=== PATIENT | male | born 1940 | race Caucasian/White ===

== ENCOUNTER → 2017-10-31 12:55 | Outpatient (CLI) | payer MEDICARE ==
[~2017-10-31 12:55] MED LIST: ASCORBIC ACID500 MG; CO Q-10200 MG PO; CRESTOR10 MG PO; KRILL OIL 1,001 EAC1 PO; LISINOPRIL5 MG PO; MULTI-DAY VITAM1 TAB PO; TIMOPTIC 0.25% O5 M1 EACH EYE; VITAMIN B650 MG PO; XALATAN 0.0052.5 ML EACH EYE
[2017-11-29 09:21] VITALS: BMI 29.4
== END | disposition home or self-care (01) ==
LOC: D.US 12:55
DX: R31.9 Hematuria, unspecified (principal)

== ENCOUNTER → 2017-11-21 17:13 | Outpatient (CLI) | payer MEDICARE | END | disposition home or self-care (01) | LOC: D.LABREF 17:13 | DX: R31.9 Hematuria, unspecified (principal) ==

== ENCOUNTER 2017-11-29 08:23 | Day surgery (SDC) | payer MEDICARE ==
[~2017-11-29] VITALS: Ht 172.7 cm; Wt 87.5 kg
--- NOTE | ~2017-11-29 | OP ---
PATIENT NAME: SHAZIA PARKS MEDICAL RECORD: [id number] :41 LOCATION:[id number] ADMISSION DATE: SURGEON: VINOD ESTRADA MD DATE OF OPERATION: 11/29/2017 SURGEON: Vinod Estrada MD ANESTHESIA: General anesthesia by Rivas Linder CRNA. DIAGNOSES: Microscopic hematuria, bulbar urethral stricture. PROCEDURES: Cystoscopy, direct vision internal urethrotomy. FINDINGS: Focal bulbar urethral stricture and in the bladder, there were single ureteral orifices bilaterally. No bladder tumors. BLOOD LOSS: None. CLINICAL HISTORY: This is a 77-year-old male, who was referred by his family physician for microscopic hematuria. This has been known since 1986. He had cystoscopy at that time and his urologist claimed that the patient had a "precancerous polyp" in the bladder. The patient has not had any further cystoscopy since then. Dr. Barrera ordered an ultrasound of the abdomen. This showed essentially normal kidneys. No renal masses were seen. There was no hydronephrosis. Urine cytology has shown nothing of significance. THE PATIENT IS ALLERGIC TO IODINE AND NIACIN. He comes today for cystoscopy. He does not complain of any real voiding symptoms. 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 He was given induction of general anesthetic and then placed in dorsal lithotomy position. He was prepped and draped. A 21-[place] cystoscope with 30-degree lens was used for visualization. Anterior urethra shows no lesions. In the bulbar urethra, there was a focal stricture. The scope could not pass this. We then switched to the optic urethrotome with a 12-degree lens. A Sensor wire was placed through the stricture zone into the bladder. Then, following the Sensor wire and incising at 12:00 using the cold knife, the stricture was incised and I was able to complete cystoscopy. We entered into the prostatic urethra, which is not obstructive. In the bladder, no tumors were seen. The scope was then removed, leaving the wire in place. Over the wire, a 16-[place] Pedraza catheter was inserted into the bladder. Once the catheter was fully up to the hub against the urethral meatus, then we inflated the Pedraza catheter balloon with 10 cc of sterile water. The wire was then removed entirely. The catheter was put to bag drainage. The patient will go home with a Pedraza catheter and I will see him in followup next week to remove the Pedraza catheter. TRANSINT:[id number] Voice Confirmation ID: [id number] DOCUMENT ID: [id number] OPERATIVE REPORT [id number] SHAZIA PARKS ROBERT S MD at 1116 CC: [id number] DICTATION DATE: 11/29/17 174 BILLET SHEARER: 11/29/17 [id number] [place] [id number]
[2017-11-29 08:40] LABS: HEMATOCRIT 49.8 % (42.0-54.0); HEMOGLOBIN 17.4 g/dL (13.5-17.5); MCH 31.9 pg (26.0-34.0); MCHC 34.9 g/dL (31.0-37.0); MCV 91.2 fL (80.0-100.0); MEAN PLATELET VOLUME 10.3 fL (7.4-10.4); RBC 5.46 10x6/uL (4.20-6.10); RDW 13.8 % (11.5-14.5)
[2017-11-29 09:21] VITALS: BP 142/80; Ht 172.7 cm; Wt 87.5 kg
[2017-11-29 22:10] VITALS: BP 114/58
[2017-11-30 05:46] VITALS: BP 125/62
[2017-11-30 08:51] VITALS: BP 130/77
[2017-11-30 09:28] LABS: BASOPHILS 0 % (0-2); EOSINOPHILS 0 % (0-7); HEMATOCRIT 47.6 % (42.0-54.0); HEMOGLOBIN 16.7 g/dL (13.5-17.5); IMMATURE GRANULOCYTES 0.2 % (0-5); LYMPHOCYTES 4.7 % (15-50); MCH 31.7 pg (26.0-34.0); MCHC 35.1 g/dL (31.0-37.0); MCV 90.5 fL (80.0-100.0); MEAN PLATELET VOLUME 10.4 fL (7.4-10.4); MONOCYTES 2.6 % (2-11); NEUTROPHILS 92.5 % (40-80); PLATELET COUNT 194 10x3/uL (130-400); RBC 5.26 10x6/uL (4.20-6.10); RDW 13.4 % (11.5-14.5)
[2017-11-30 09:31] LABS: WBC 14.5 10x3/uL (4.8-10.8)
[2017-11-30] MEDS ORDERED: TYLENOL W/CODEI1 TAB PO (12:41)
[2017-11-30 12:45] VITALS: BP 116/76
== END 2017-11-30 15:05 | disposition home or self-care (01) ==
LOC: D.MS 08:23 → D.OPS 08:23 → D.PAN 09:30 → D.OPS 09:45 → D.MS 19:40 → D.OPS 11-30 15:05
PROVIDERS: Anesthesiology; Urology
DX: R31.29 Other microscopic hematuria (principal); N35.8 Other urethral stricture; Z88.8 Allergy status to other drugs, medicaments and biological substances; Z01.812 Encounter for preprocedural laboratory examination

== ENCOUNTER 2017-12-03 13:59 | Emergency (ER) | payer MEDICARE ==
[~2017-12-03] VITALS: Ht 172.7 cm; Wt 88.2 kg
[~2017-12-03 13:59] MED LIST changes: +TYLENOL W/CODEI1 TAB PO
[2017-12-03 14:03] VITALS: Ht 172.7 cm; Wt 88.2 kg
[2017-12-03] MEDS ORDERED: CIPRO250 MG PO (14:35)
[2017-12-03 14:53] VITALS: BP 122/82
[2017-12-03 15:01] LABS: APPEARANCE HAZY (CLEAR); BILIRUBIN NEGATIVE (NEGATIVE); COLOR RED (YELLOW); GLUCOSE NEGATIVE (NEGATIVE); KETONE NEGATIVE (NEGATIVE); NITRITE NEGATIVE (NEGATIVE); PROTEIN 1+ mg/dL (NEGATIVE); UROBILINOGEN NORMAL (NORMAL)
[2017-12-03 15:02] LABS: RED CELLS - URINE >50 /hpf (0-5)
[2017-12-03 15:03] LABS: BACTERIA MANY /hpf (NONE SEEN)
== END 2017-12-03 14:54 | disposition home or self-care (01) ==
LOC: D.ER 13:59
PROVIDERS: Emergency Medicine
DX: R31.0 Gross hematuria (principal); N48.89 Other specified disorders of penis; N42.9 Disorder of prostate, unspecified